=== PATIENT | female | born 1995 | race Caucasian/White ===

== ENCOUNTER 2016-12-31 22:48 | Emergency (ER) | payer OTHER ==
[~2016-12-31] VITALS: Ht 177.8 cm; Wt 58.7 kg
[2017-01-01 00:29] LABS: HEMATOCRIT 41.3 % (34.6-47.8); WHITE BLOOD COUNT 10.6 x10^3/uL (3.4-10)
[2017-01-01] MEDS ORDERED: SODIUM CHLORIDE 0.9% 1,000ML IVBOLUS ONE (00:30)
[2017-01-01] MEDS ORDERED: SODIUM CHLORIDE FLUSH 10ML SYR IVF ONE (00:30)
[2017-01-01] MEDS ORDERED: LORazepam 2 MG/ML, 1ML IVPush ONE (00:30)
[2017-01-01 00:41] LABS: ASPARTATE AMINO TRANSFERASE 10 U/L (15-37); BLOOD UREA NITROGEN 5 mg/dL (7-18)
[2017-01-01] MEDS ORDERED: LORazepam 2 MG/ML, 1ML ONE (00:45)
[2017-01-01] MEDS ORDERED: ACETAMINOPHEN 325 MG TABLET PO ONE (01:00)
[2017-01-01 02:11] VITALS: BP 110/57
== END 2017-01-01 02:15 | disposition home or self-care (01) ==
LOC: ED 23:59
DX: G40.909 Epilepsy, unspecified, not intractable, without status epilepticus (principal); F17.210 Nicotine dependence, cigarettes, uncomplicated
CPT/HCPCS: 36415; 80053; 85025; 93005; 96374; 99285; J2060; J7030

== ENCOUNTER 2017-03-09 22:23 | Emergency (ER) | payer OTHER ==
[~2017-03-09] VITALS: Ht 172.7 cm; Wt 59.0 kg
[2017-03-09] MEDS ORDERED: SODIUM CHLORIDE FLUSH 10ML SYR IVF ONE (22:30)
[2017-03-09] MEDS ORDERED: ONDANSETRON 2MG/ML, 2ML ONE (22:46)
[2017-03-09 22:55] LABS: HEMATOCRIT 38.7 % (34.6-47.8); HEMOGLOBIN 13.2 g/dL (11.7-16.4); WHITE BLOOD COUNT 9.2 x10^3/uL (3.4-10)
[2017-03-09] MEDS ORDERED: SODIUM CHLORIDE 0.9% 1,000ML IVBOLUS ONE (23:00)
[2017-03-09] MEDS ORDERED: ONDANSETRON 2MG/ML, 2ML IVPush ONE (23:00)
[2017-03-09 23:04] LABS: BLOOD UREA NITROGEN 4 mg/dL (7-18)
[2017-03-09] MEDS ORDERED: POTASSIUM CHLORIDE 20 MEQ in SODIUM CHLORIDE 0.9% 250 ML IV ONE (23:30)
[2017-03-10 04:28] VITALS: BP 90/60
== END 2017-03-10 04:19 ==
LOC: ED 23:07
DX: F10.121 Alcohol abuse with intoxication delirium (principal); E87.6 Hypokalemia
CPT/HCPCS: 36415; 80048; 80307; 82040; 84703; 85025; 96361; 96365; 96375; 99284; J2405; J3480; J7030; J7050; G0479

== ENCOUNTER 2017-04-07 00:04 | Emergency (ER) | payer OTHER ==
[~2017-04-07] VITALS: Ht 175.3 cm; Wt 55.2 kg
[2017-04-07 00:05] VITALS: BP 109/71
[2017-04-07 00:48] LABS: CULTURE INDICATED? NO; HCG UR SG 1.015 (1.003-1.030); MICROSCOPIC NOT IND
[2017-04-07] MEDS ORDERED: ACETAMINOPHEN 325 MG TABLET ONE (01:54)
[2017-04-07] MEDS ORDERED: IBUPROFEN 200 MG TABLET ONE (01:54)
[2017-04-07] MEDS ORDERED: ACETAMINOPHEN 325 MG TABLET PO ONE (02:00)
[2017-04-07] MEDS ORDERED: IBUPROFEN 200 MG TABLET PO ONE (02:00)
== END 2017-04-07 02:04 | disposition home or self-care (01) ==
LOC: ED 01:21
DX: M54.6 Pain in thoracic spine (principal)
CPT/HCPCS: 81003; 81025; 99284